=== PATIENT | female | born 1970 | race Caucasian/White ===

== ENCOUNTER → 2018-03-28 | Outpatient (CLI) | payer OTHER ==
[2018-03-28 18:14] LABS: Percent Saturation 2.3 % (15.0-50.0)
== END | disposition home or self-care (01) ==
LOC: LAB SHORT 15:25 → LAB 15:25
PROVIDERS: Internal Medicine Hematology & Oncology
DX: D50.9 Iron deficiency anemia, unspecified (principal); Z98.84 Bariatric surgery status
CPT/HCPCS: 82728; 83540; 83550

== ENCOUNTER 2018-04-24 06:59 | Day surgery (SDC) | payer OTHER ==
[~2018-04-24] VITALS: Ht 170.2 cm; Wt 125.2 kg
[~2018-04-24 06:59] MED LIST: ALBU90OI INH; CELE200 PO; Citalopram HBr40 MG PO; PANT40 PO; PRAMIPEXOLE0.125 MG PO; QVAR REDIHALE10.6 G1 INH
[2018-04-24] MEDS ORDERED: Nortriptyline H50 MG PO (08:24)
[2018-04-24] MEDS ORDERED: CLARITIN-D 121 EACH PO (08:26)
[2018-04-24] MEDS ORDERED: VITAMIN D5000 UNI1 PO (08:27)
[2018-04-25 05:57] LABS: Anion Gap 8 mmol/L (6-16); Blood Urea Nitrogen 9 mg/dL (8-24); Bun/Creatinine Ratio 17.7 (12.0-20.0); CO2, Blood 25 mmol/L (21-32); Chloride, Blood 104 mmol/L (98-108); Creatinine, Blood 0.51 mg/dL (0.40-1.00); Glomerular Filtration Rate >60 (60-); Glucose, Blood 108 mg/dL (70-99); Magnesium, Blood 1.8 mg/dL (1.6-2.4); Potassium, Blood 4.2 mmol/L (3.5-5.5); Sodium, Blood 137 mmol/L (136-145)
[2018-04-25 06:00] LABS: BASOPHILS ABSOLUTE AUTO 0.03 K/mm3 (0.00-0.23); BASOPHILS PERCENT AUTO 1 % (0-2); EOSINOPHILS ABSOLUTE AUTO 0.04 K/mm3 (0.00-0.68); EOSINOPHILS PERCENT AUTO 1 % (0-6); Hemoglobin 9.9 g/dL (11.5-16.0); IMMATURE GRAN ABSOLUTE AUTO 0.02 K/mm3 (0.00-0.10); IMMATURE GRAN PERCENT AUTO 0 % (0-1); LYMPHOCYTES ABSOLUTE AUTO 0.55 K/mm3 (0.84-5.20); LYMPHOCYTES PERCENT AUTO 10 % (21-46); MONOCYTES ABSOLUTE AUTO 0.44 K/mm3 (0.16-1.47); MONOCYTES PERCENT AUTO 8 % (4-13); NEUTROPHILS ABSOLUTE AUTO 4.48 K/mm3 (1.96-9.15); NEUTROPHILS PERCENT AUTO 81 % (41-73); Platelet Count 219 K/mm3 (150-400); White Blood Cell Count 5.56 K/mm3 (4.00-11.30)
[2018-04-25 06:02] LABS: Hematocrit 31.9 % (33.0-51.0); Mean Corpuscular HGB 23.9 pg (26.0-34.0); Mean Corpuscular Volume 77 fL (80-100); Red Blood Cell Count 4.14 M/mm3 (3.80-5.20)
[2018-04-25 06:04] LABS: Mean Platelet Volume 10.5 fL (9.1-12.4)
[2018-04-25] MEDS ORDERED: ROXICODONE5 MG PO (08:27)
[2018-04-25] MEDS ORDERED: ACET500 PO (08:29)
[2018-04-25] MEDS ORDERED: ASPI325EC PO (08:32)
== END 2018-04-25 14:24 | disposition home or self-care (01) ==
LOC: PRE IP 06:59 → SURS 06:59 → ORSCMMR 06:59 → EDSTATUS 10:30 → PRE IP 10:30 → SURS 13:25 → ORSCMMR 04-25 14:24 → SURS 04-25 14:24
PROVIDERS: Orthopaedic Surgery
PROC: 0SRC0J9 Replacement of Right Knee Joint with Synthetic Substitute, Cemented, Open Approach (ICD-10-PCS; principal; 2018-04-24 10:30)
DX: M17.11 Unilateral primary osteoarthritis, right knee (principal); I48.91 Unspecified atrial fibrillation; E66.01 Morbid (severe) obesity due to excess calories; Z68.41 Body mass index [BMI] 40.0-44.9, adult; Z79.899 Other long term (current) drug therapy
CPT/HCPCS: 36415; 73560-RT; 80048; 83735; 85025; 88300; 94640; 94760; 97110; 97116; 97162; 97530; C1713; C1776; G8978; G8979; G8980; J0171; J0690; J0735; J1885; J2250; J2795; J3010; J7120

== ENCOUNTER 2019-01-26 14:12 | Emergency (ER) | payer OTHER ==
[~2019-01-26] VITALS: Ht 172.7 cm; Wt 88.5 kg
[~2019-01-26 14:12] MED LIST changes: +ACET500 PO; +ASPI325EC PO; +Aspir 8181 MG PO; +CLARITIN-D 121 EACH PO; +Nortriptyline H50 MG PO; +ROXICODONE5 MG PO; +VITAMIN D5000 UNI1 PO
[2019-01-26 15:19] LABS: BASOPHILS ABSOLUTE AUTO 0.03 K/mm3 (0.00-0.23); BASOPHILS PERCENT AUTO 0 % (0-2); EOSINOPHILS PERCENT AUTO 1 % (0-6); Hematocrit 45.9 % (33.0-51.0); Hemoglobin 15.3 g/dL (11.5-16.0); IMMATURE GRAN ABSOLUTE AUTO 0.03 K/mm3 (0.00-0.10); IMMATURE GRAN PERCENT AUTO 0 % (0-1); LYMPHOCYTES ABSOLUTE AUTO 0.92 K/mm3 (0.84-5.20); LYMPHOCYTES PERCENT AUTO 13 % (21-46); MONOCYTES ABSOLUTE AUTO 0.46 K/mm3 (0.16-1.47); MONOCYTES PERCENT AUTO 6 % (4-13); Mean Corpuscular HGB 31.3 pg (26.0-34.0); Mean Corpuscular HGB Conc 33.3 g/dL (31.5-36.5); Mean Corpuscular Volume 94 fL (80-100); Mean Platelet Volume 10.2 fL (9.1-12.4); NEUTROPHILS ABSOLUTE AUTO 5.76 K/mm3 (1.96-9.15); NEUTROPHILS PERCENT AUTO 79 % (41-73); Platelet Count 263 K/mm3 (150-400); RDW Coefficient Variation 12.8 % (11.7-14.2); RDW Standard Deviation 43.9 fL (35.1-46.3); Red Blood Cell Count 4.89 M/mm3 (3.80-5.20)
[2019-01-26 15:45] LABS: Alanine Aminotransfer (ALT/SGP 31 U/L (12-78); Albumin, Blood 4.1 g/dL (3.4-5.0); Albumin/Globulin Ratio 1.2 (0.8-1.8); Alk Phos 68 U/L (50-136); Anion Gap 8 mmol/L (6-16); Aspartate Aminotrans (AST/SGOT 10 U/L (12-37); Bilirubin, Total 0.4 mg/dL (0.1-1.0); Blood Urea Nitrogen 10 mg/dL (8-24); Bun/Creatinine Ratio 17.5 (12.0-20.0); CO2, Blood 25 mmol/L (21-32); Calcium, Blood 8.6 mg/dL (8.5-10.1); Chloride, Blood 108 mmol/L (98-108); Creatinine, Blood 0.57 mg/dL (0.40-1.00); Globulin, Blood 3.3 g/dL (2.2-4.0); Glomerular Filtration Rate >60 (60-); Glucose, Blood 73 mg/dL (70-99); Potassium, Blood 3.3 mmol/L (3.5-5.5); Sodium, Blood 141 mmol/L (136-145); Total Protein, Blood 7.4 g/dL (6.4-8.2); Troponin I <0.015 ng/mL (0.000-0.040)
== END 2019-01-26 16:52 | disposition home or self-care (01) ==
LOC: ER 14:12
PROVIDERS: Physician Assistant
DX: R00.2 Palpitations (principal); I48.91 Unspecified atrial fibrillation; Z79.899 Other long term (current) drug therapy; Z79.82 Long term (current) use of aspirin
CPT/HCPCS: 36415; 80053; 84484; 85025; 93005; 93010; 99284-25

== ENCOUNTER → 2019-03-20 | Outpatient (CLI) | payer OTHER ==
[2019-03-22 15:06] LABS: HPV 16 Negative (Negative); HPV 18 Negative (Negative); HPV OTHER HR TYPES Negative (Negative)
== END | disposition home or self-care (01) ==
LOC: LAB SHORT 17:48 → LAB 17:48
PROVIDERS: Nurse Practitioner Women's Health
DX: Z12.4 Encounter for screening for malignant neoplasm of cervix (principal); N89.8 Other specified noninflammatory disorders of vagina
CPT/HCPCS: 87624; G0123

== ENCOUNTER 2019-04-29 15:28 | Emergency (ER) | payer OTHER ==
[~2019-04-29] VITALS: Ht 170.2 cm; Wt 136.1 kg
== END 2019-04-29 16:30 | disposition home or self-care (01) ==
LOC: ER 15:28
DX: S61.411A Laceration without foreign body of right hand, initial encounter (principal); W22.8XXA Striking against or struck by other objects, initial encounter; Z79.899 Other long term (current) drug therapy; Z79.82 Long term (current) use of aspirin; I48.91 Unspecified atrial fibrillation
CPT/HCPCS: 12001; 99283-25

== ENCOUNTER 2019-05-11 16:21 | Emergency (ER) | payer OTHER ==
[~2019-05-11] VITALS: Ht 170.2 cm; Wt 136.1 kg
== END 2019-05-11 16:46 | disposition home or self-care (01) ==
LOC: ER 16:21
DX: S61.431D Puncture wound without foreign body of right hand, subsequent encounter (principal); Z79.899 Other long term (current) drug therapy; Z79.82 Long term (current) use of aspirin; I48.91 Unspecified atrial fibrillation; K21.9 Gastro-esophageal reflux disease without esophagitis
CPT/HCPCS: 99281

== ENCOUNTER 2019-06-02 09:48 | Emergency (ER) | payer OTHER ==
[~2019-06-02] VITALS: Ht 170.2 cm; Wt 135.2 kg
[2019-06-02 10:16] LABS: BASOPHILS ABSOLUTE AUTO 0.03 K/mm3 (0.00-0.23); BASOPHILS PERCENT AUTO 0 % (0-2); EOSINOPHILS ABSOLUTE AUTO 0.04 K/mm3 (0.00-0.68); EOSINOPHILS PERCENT AUTO 1 % (0-6); Hematocrit 42.1 % (33.0-51.0); IMMATURE GRAN ABSOLUTE AUTO 0.01 K/mm3 (0.00-0.10); IMMATURE GRAN PERCENT AUTO 0 % (0-1); LYMPHOCYTES ABSOLUTE AUTO 0.83 K/mm3 (0.84-5.20); LYMPHOCYTES PERCENT AUTO 12 % (21-46); MONOCYTES ABSOLUTE AUTO 0.44 K/mm3 (0.16-1.47); MONOCYTES PERCENT AUTO 6 % (4-13); Mean Corpuscular HGB 31.4 pg (26.0-34.0); Mean Corpuscular HGB Conc 33.3 g/dL (31.5-36.5); Mean Corpuscular Volume 94 fL (80-100); Mean Platelet Volume 10.1 fL (9.1-12.4); NEUTROPHILS ABSOLUTE AUTO 5.56 K/mm3 (1.96-9.15); NEUTROPHILS PERCENT AUTO 81 % (41-73); Platelet Count 285 K/mm3 (150-400); RDW Coefficient Variation 13.1 % (11.7-14.2); RDW Standard Deviation 44.9 fL (35.1-46.3); Red Blood Cell Count 4.46 M/mm3 (3.80-5.20); White Blood Cell Count 6.91 K/mm3 (4.00-11.30)
[2019-06-02 10:36] LABS: Alanine Aminotransfer (ALT/SGP 23 U/L (12-78); Albumin, Blood 3.4 g/dL (3.4-5.0); Albumin/Globulin Ratio 1.2 (0.8-1.8); Alk Phos 55 U/L (50-136); Anion Gap 6 mmol/L (6-16); Aspartate Aminotrans (AST/SGOT 4 U/L (12-37); Bilirubin, Total 0.4 mg/dL (0.1-1.0); Blood Urea Nitrogen 7 mg/dL (8-24); CO2, Blood 26 mmol/L (21-32); Calcium, Blood 7.9 mg/dL (8.5-10.1); Chloride, Blood 111 mmol/L (98-108); Creatinine, Blood 0.58 mg/dL (0.40-1.00); Globulin, Blood 2.9 g/dL (2.2-4.0); Glomerular Filtration Rate >60 (60-); Glucose, Blood 105 mg/dL (70-99); Potassium, Blood 3.8 mmol/L (3.5-5.5); Sodium, Blood 143 mmol/L (136-145); Total Protein, Blood 6.3 g/dL (6.4-8.2); Troponin I <0.015 ng/mL (0.000-0.040)
[2019-06-02] MEDS ORDERED: Lopressor 25 mg25 MG PO (12:19)
[2019-06-06 14:50] LABS: Percent Saturation 39.9 % (15.0-50.0)
== END 2019-06-02 12:20 | disposition home or self-care (01) ==
LOC: ER 09:48
PROVIDERS: Emergency Medicine; Internal Medicine Hematology & Oncology
DX: I48.0 Paroxysmal atrial fibrillation (principal); Z98.84 Bariatric surgery status; Z79.899 Other long term (current) drug therapy
CPT/HCPCS: 36415; 71046; 80053; 82728; 83540; 83550; 84484; 85025; 92960; 93005; 93010; 96365-59; 99285-25; J2704; J7030

== ENCOUNTER 2019-08-28 15:02 | Emergency (ER) | payer OTHER ==
[~2019-08-28] VITALS: Ht 172.7 cm; Wt 136.1 kg
[~2019-08-28 15:02] MED LIST changes: +Lopressor 25 mg25 MG PO
[2019-08-28 17:10] LABS: Calcium, Ionized (POC) 1.05 mmol/L (1.10-1.46); Chloride (POC) 101 mmol/L (98-108); Glucose (ISTAT POC) 97 mg/dL (70-99); Hemoglobin (POC) 13.9 g/dL (12.0-16.0); Potassium (POC) 3.7 mmol/L (3.5-5.5); Sodium (POC) 137 mmol/L (135-148); Total CO2 (POC) 23 mmol/L (21-32)
== END 2019-08-28 18:04 | disposition home or self-care (01) ==
LOC: ER 15:02
PROVIDERS: Physician Assistant
DX: F10.129 Alcohol abuse with intoxication, unspecified (principal); D32.0 Benign neoplasm of cerebral meninges; K21.9 Gastro-esophageal reflux disease without esophagitis; I48.91 Unspecified atrial fibrillation; Z79.899 Other long term (current) drug therapy; Z79.82 Long term (current) use of aspirin
CPT/HCPCS: 70450; 80047; 85014; 93005; 93010; 99284-25

== ENCOUNTER 2019-09-28 21:42 | Emergency (ER) | payer OTHER ==
[~2019-09-28] VITALS: Ht 172.7 cm; Wt 138.0 kg
== END 2019-09-28 23:18 | disposition home or self-care (01) ==
LOC: ER 21:42
DX: J06.9 Acute upper respiratory infection, unspecified (principal); F32.9 Major depressive disorder, single episode, unspecified; K21.9 Gastro-esophageal reflux disease without esophagitis; Z79.899 Other long term (current) drug therapy; Z79.82 Long term (current) use of aspirin
CPT/HCPCS: 99283

== ENCOUNTER 2020-05-19 08:50 | Emergency (ER) | payer OTHER ==
[~2020-05-19] VITALS: Ht 170.2 cm; Wt 145.2 kg
[2020-05-19 10:16] LABS: BASOPHILS ABSOLUTE AUTO 0.02 K/mm3 (0.00-0.23); BASOPHILS PERCENT AUTO 0 % (0-2); EOSINOPHILS ABSOLUTE AUTO 0.04 K/mm3 (0.00-0.68); EOSINOPHILS PERCENT AUTO 0 % (0-6); Hematocrit 40.2 % (33.0-51.0); Hemoglobin 13.3 g/dL (11.5-16.0); IMMATURE GRAN ABSOLUTE AUTO 0.04 K/mm3 (0.00-0.10); IMMATURE GRAN PERCENT AUTO 0 % (0-1); LYMPHOCYTES ABSOLUTE AUTO 0.33 K/mm3 (0.84-5.20); LYMPHOCYTES PERCENT AUTO 3 % (21-46); MONOCYTES ABSOLUTE AUTO 0.42 K/mm3 (0.16-1.47); MONOCYTES PERCENT AUTO 4 % (4-13); Mean Corpuscular HGB 30.6 pg (26.0-34.0); Mean Corpuscular HGB Conc 33.1 g/dL (31.5-36.5); Mean Corpuscular Volume 92 fL (80-100); Mean Platelet Volume 10.2 fL (9.1-12.4); NEUTROPHILS ABSOLUTE AUTO 9.72 K/mm3 (1.96-9.15); NEUTROPHILS PERCENT AUTO 92 % (41-73); Platelet Count 237 K/mm3 (150-400); RDW Coefficient Variation 12.9 % (11.7-14.2); RDW Standard Deviation 43.6 fL (35.1-46.3); Red Blood Cell Count 4.35 M/mm3 (3.80-5.20); White Blood Cell Count 10.57 K/mm3 (4.00-11.30)
[2020-05-19 10:26] LABS: Source, Urine Clean Catch
[2020-05-19 10:37] LABS: Bilirubin, Urine Neg (Neg); Blood, Urine 3+ (Neg); Glucose Qualitative, Urine Neg (Neg); Ketones, Urine Neg (Neg); Leukocyte Esterase, Urine 2+ (Neg); Nitrite, Urine Neg (Neg); Protein, Urine 1+ (Neg); Specific Gravity, Urine 1.005 (1.003-1.022); Urobilinogen, Urine 1+ (Normal); pH, Urine 6.5 (5.0-8.0)
[2020-05-19 10:41] LABS: Alanine Aminotransfer (ALT/SGP 15 U/L (12-78); Albumin, Blood 3.8 g/dL (3.4-5.0); Albumin/Globulin Ratio 1.2 (0.8-1.8); Alk Phos 65 U/L (50-136); Anion Gap 6 mmol/L (6-16); Aspartate Aminotrans (AST/SGOT 15 U/L (12-37); Bilirubin, Total 0.8 mg/dL (0.1-1.0); Blood Urea Nitrogen 8 mg/dL (8-24); Bun/Creatinine Ratio 14.5 (12.0-20.0); CO2, Blood 29 mmol/L (21-32); Calcium, Blood 8.2 mg/dL (8.5-10.1); Chloride, Blood 103 mmol/L (98-108); Creatinine, Blood 0.55 mg/dL (0.40-1.00); Globulin, Blood 3.2 g/dL (2.2-4.0); Glomerular Filtration Rate >60 (60-); Glucose, Blood 102 mg/dL (70-99); Potassium, Blood 3.7 mmol/L (3.5-5.5); Sodium, Blood 138 mmol/L (136-145)
[2020-05-19 10:50] LABS: Appearance, Urine Clear (Clear); Bacteria Mod /hpf; Color, Urine Yellow (P-Yellow); Squamous Epithelial Cells Mod /hpf (Few)
[2020-05-19] MEDS ORDERED: CEPH500 PO (11:52)
[2020-05-19] MEDS ORDERED: Diflucan150 MG PO (11:52)
== END 2020-05-19 12:03 | disposition home or self-care (01) ==
LOC: ER 08:50
PROVIDERS: Emergency Medicine
DX: N39.0 Urinary tract infection, site not specified (principal); Z79.82 Long term (current) use of aspirin; Z79.899 Other long term (current) drug therapy; I48.91 Unspecified atrial fibrillation; F32.9 Major depressive disorder, single episode, unspecified; K21.9 Gastro-esophageal reflux disease without esophagitis
CPT/HCPCS: 36415; 80053; 81001; 81025; 85025; 87077; 87086; 87186; 93005; 93010; 99284-25; U0002

== ENCOUNTER 2020-09-15 06:31 | Emergency (ER) | payer OTHER ==
[~2020-09-15] VITALS: Ht 175.3 cm; Wt 140.6 kg
[~2020-09-15 06:31] MED LIST changes: +CEPH500 PO; +Diflucan150 MG PO
[2020-09-15] MEDS ORDERED: CARBLEV25 SL (06:41)
[2020-09-15] MEDS ORDERED: LISI20 PO (06:41)
[2020-09-15] MEDS ORDERED: OMEP20ER PO (06:42)
[2020-09-15] MEDS ORDERED: BISOPROLOL-HCT1 EACH PO (06:42)
[2020-09-15] MEDS ORDERED: IBUP400 PO (06:53)
[2020-09-15] MEDS ORDERED: Cyclobenzaprine5 MG PO (06:53)
== END 2020-09-15 07:10 | disposition home or self-care (01) ==
LOC: ER 06:31
DX: M54.41 Lumbago with sciatica, right side (principal); G89.29 Other chronic pain; I48.91 Unspecified atrial fibrillation; F32.9 Major depressive disorder, single episode, unspecified; K21.9 Gastro-esophageal reflux disease without esophagitis; Z79.82 Long term (current) use of aspirin; Z79.899 Other long term (current) drug therapy
CPT/HCPCS: 96372; 99283-25; J1885

== ENCOUNTER 2021-03-05 04:10 | Emergency (ER) | payer OTHER ==
[~2021-03-05] VITALS: Ht 172.7 cm; Wt 145.2 kg
== END 2021-03-05 07:44 | disposition home or self-care (01) ==
LOC: ER 04:10
DX: I48.91 Unspecified atrial fibrillation (principal); Z79.899 Other long term (current) drug therapy
CPT/HCPCS: 36415; 74176; 80053; 81003; 83690; 85025; 96374; 99284-25; A9270; J3010; J7030

== ENCOUNTER 2021-06-08 14:13 | Emergency (ER) | payer BC, OTHER ==
[~2021-06-08] VITALS: Ht 170.2 cm; Wt 140.6 kg
[~2021-06-08 14:13] MED LIST changes: +BISOPROLOL-HCT1 EACH PO; +CARBLEV25 SL; +Cyclobenzaprine5 MG PO; +IBUP400 PO; +LISI20 PO; +OMEP20ER PO
[2021-06-08 15:05] LABS: BASOPHILS ABSOLUTE AUTO 0.06 K/mm3 (0.00-0.23); BASOPHILS PERCENT AUTO 1 % (0-2); EOSINOPHILS ABSOLUTE AUTO 0.11 K/mm3 (0.00-0.68); EOSINOPHILS PERCENT AUTO 1 % (0-6); Hematocrit 35.3 % (33.0-51.0); Hemoglobin 11.3 g/dL (11.5-16.0); IMMATURE GRAN ABSOLUTE AUTO 0.01 K/mm3 (0.00-0.10); IMMATURE GRAN PERCENT AUTO 0 % (0-1); LYMPHOCYTES PERCENT AUTO 18 % (21-46); MONOCYTES PERCENT AUTO 9 % (4-13); Mean Corpuscular HGB 25.7 pg (26.0-34.0); Mean Corpuscular Volume 80 fL (80-100); Mean Platelet Volume 10.8 fL (9.1-12.4); NEUTROPHILS ABSOLUTE AUTO 5.48 K/mm3 (1.96-9.15); NEUTROPHILS PERCENT AUTO 71 % (41-73); Platelet Count 358 K/mm3 (150-400); RDW Coefficient Variation 14.9 % (11.7-14.2); RDW Standard Deviation 43.5 fL (35.1-46.3); Red Blood Cell Count 4.39 M/mm3 (3.80-5.20); White Blood Cell Count 7.76 K/mm3 (4.00-11.30)
[2021-06-08 15:25] LABS: Alanine Aminotransfer (ALT/SGP 19 U/L (12-78); Albumin, Blood 3.5 g/dL (3.4-5.0); Alk Phos 76 U/L (50-136); Anion Gap 6 mmol/L (6-16); Aspartate Aminotrans (AST/SGOT 17 U/L (12-37); Bilirubin, Total 0.2 mg/dL (0.1-1.0); Blood Urea Nitrogen 11 mg/dL (8-24); Bun/Creatinine Ratio 21.2 (12.0-20.0); CO2, Blood 26 mmol/L (21-32); Calcium, Blood 8.4 mg/dL (8.5-10.1); Chloride, Blood 106 mmol/L (98-108); Creatinine, Blood 0.52 mg/dL (0.40-1.00); Globulin, Blood 3.5 g/dL (2.2-4.0); Glomerular Filtration Rate >60 (60-); Glucose, Blood 85 mg/dL (70-99); Phosphorus, Blood 2.8 mg/dL (2.5-4.9); Potassium, Blood 4.2 mmol/L (3.5-5.5); Sodium, Blood 138 mmol/L (136-145)
== END 2021-06-08 20:40 | disposition home or self-care (01) ==
LOC: ER 14:13
PROVIDERS: Physician Assistant
DX: R25.2 Cramp and spasm (principal); Z79.899 Other long term (current) drug therapy
CPT/HCPCS: 36415; 80053; 83735; 83880; 84100; 85025; 93005; 93010; 93971; 99284-25

== ENCOUNTER 2021-08-24 13:10 | Emergency (ER) | payer BC, OTHER ==
[~2021-08-24] VITALS: Ht 170.2 cm; Wt 142.9 kg
[~2021-08-24 13:10] MED LIST changes: -LISI20 PO; +Prinivil10 MG PO
[2021-08-24 13:49] LABS: BASOPHILS ABSOLUTE AUTO 0.02 K/mm3 (0.00-0.23); BASOPHILS PERCENT AUTO 0 % (0-2); EOSINOPHILS ABSOLUTE AUTO 0.09 K/mm3 (0.00-0.68); EOSINOPHILS PERCENT AUTO 2 % (0-6); Hematocrit 40.3 % (33.0-51.0); Hemoglobin 13.8 g/dL (11.5-16.0); IMMATURE GRAN ABSOLUTE AUTO 0.01 K/mm3 (0.00-0.10); IMMATURE GRAN PERCENT AUTO 0 % (0-1); LYMPHOCYTES ABSOLUTE AUTO 0.76 K/mm3 (0.84-5.20); LYMPHOCYTES PERCENT AUTO 13 % (21-46); MONOCYTES ABSOLUTE AUTO 0.42 K/mm3 (0.16-1.47); MONOCYTES PERCENT AUTO 7 % (4-13); Mean Corpuscular HGB 29.6 pg (26.0-34.0); Mean Corpuscular HGB Conc 34.2 g/dL (31.5-36.5); Mean Corpuscular Volume 87 fL (80-100); NEUTROPHILS ABSOLUTE AUTO 4.65 K/mm3 (1.96-9.15); NEUTROPHILS PERCENT AUTO 78 % (41-73); Platelet Count 305 K/mm3 (150-400); RDW Coefficient Variation 18.2 % (11.7-14.2); RDW Standard Deviation 57.5 fL (35.1-46.3); Red Blood Cell Count 4.66 M/mm3 (3.80-5.20); White Blood Cell Count 5.95 K/mm3 (4.00-11.30)
[2021-08-24 14:23] LABS: Alanine Aminotransfer (ALT/SGP 23 U/L (12-78); Albumin, Blood 3.3 g/dL (3.4-5.0); Albumin/Globulin Ratio 0.8 (0.8-1.8); Alk Phos 83 U/L (50-136); Anion Gap 6 mmol/L (6-16); Aspartate Aminotrans (AST/SGOT 22 U/L (12-37); Bilirubin, Total 0.5 mg/dL (0.1-1.0); Blood Urea Nitrogen 11 mg/dL (8-24); Bun/Creatinine Ratio 19.4 (12.0-20.0); CO2, Blood 25 mmol/L (21-32); Calcium, Blood 8.8 mg/dL (8.5-10.1); Chloride, Blood 106 mmol/L (98-108); Creatinine, Blood 0.57 mg/dL (0.40-1.00); Globulin, Blood 3.9 g/dL (2.2-4.0); Glomerular Filtration Rate >60 (60-); Glucose, Blood 95 mg/dL (70-99); Potassium, Blood 3.9 mmol/L (3.5-5.5); Sodium, Blood 137 mmol/L (136-145); Total Protein, Blood 7.2 g/dL (6.4-8.2)
[2021-08-24] MEDS ORDERED: METOPROLOL TART50 M5 PO (16:12)
[2021-08-24] MEDS ORDERED: CITA20 PO (16:13)
[2021-08-24] MEDS ORDERED: FUROSEMIDE40 MG PO (16:14)
[2021-08-24 17:00] LABS: Magnesium, Blood 2.1 mg/dL (1.6-2.4); Troponin I <0.015 ng/mL (0.000-0.040)
== END 2021-08-24 17:21 | disposition home or self-care (01) ==
LOC: ER 13:10
PROVIDERS: Emergency Medicine; Physician Assistant
DX: I48.0 Paroxysmal atrial fibrillation (principal); Z79.899 Other long term (current) drug therapy
CPT/HCPCS: 36415; 80053; 83735; 84484; 85025; 93005; 93010; 93246

== ENCOUNTER 2022-03-04 06:00 | Observation (INO) | payer BC, OTHER ==
[2022-03-03 16:01] LABS: BASOPHILS ABSOLUTE AUTO 0.04 K/mm3 (0.00-0.23); BASOPHILS PERCENT AUTO 1 % (0-2); EOSINOPHILS ABSOLUTE AUTO 0.09 K/mm3 (0.00-0.68); EOSINOPHILS PERCENT AUTO 2 % (0-6); Hematocrit 39.6 % (33.0-51.0); Hemoglobin 13.1 g/dL (11.5-16.0); IMMATURE GRAN ABSOLUTE AUTO 0.01 K/mm3 (0.00-0.10); IMMATURE GRAN PERCENT AUTO 0 % (0-1); LYMPHOCYTES ABSOLUTE AUTO 1.21 K/mm3 (0.84-5.20); LYMPHOCYTES PERCENT AUTO 20 % (21-46); MONOCYTES ABSOLUTE AUTO 0.45 K/mm3 (0.16-1.47); MONOCYTES PERCENT AUTO 7 % (4-13); Mean Corpuscular HGB 30.6 pg (26.0-34.0); Mean Corpuscular HGB Conc 33.1 g/dL (31.5-36.5); Mean Corpuscular Volume 93 fL (80-100); Mean Platelet Volume 10.7 fL (9.1-12.4); NEUTROPHILS PERCENT AUTO 71 % (41-73); Platelet Count 278 K/mm3 (150-400); RDW Coefficient Variation 13.2 % (11.7-14.2); RDW Standard Deviation 44.7 fL (35.1-46.3); Red Blood Cell Count 4.28 M/mm3 (3.80-5.20)
[2022-03-03 17:26] LABS: Anion Gap 3 mmol/L (6-16); Beta HCG, Quantitative, Serum <1 mIU/mL (0-3); Blood Urea Nitrogen 11 mg/dL (8-24); Bun/Creatinine Ratio 15.9 (12.0-20.0); CO2, Blood 30 mmol/L (21-32); Calcium, Blood 8.9 mg/dL (8.5-10.1); Chloride, Blood 106 mmol/L (98-108); Creatinine, Blood 0.69 mg/dL (0.40-1.00); Glomerular Filtration Rate >60 (60-); Glucose, Blood 108 mg/dL (70-99); Sodium, Blood 139 mmol/L (136-145)
[~2022-03-04] VITALS: Ht 172.7 cm; Wt 141.2 kg
[~2022-03-04 06:00] MED LIST changes: +CITA20 PO; +FUROSEMIDE40 MG PO; +METO50 PO
[2022-03-04] MEDS ORDERED: FAMO10 PO (06:29)
--- NOTE | 2022-03-04 07:56 | NUR ---
PT RETURNS TO STEP FROM OR, AFIB c RVR NOTED IN OR, UNABLE TO PERFORM PROCEDURE. PT DENIES SOB/CP ON ARRIVAL TO STEP. PLACED ON MONITOR, AFIB C RVR NOTED IN 120'S TO 140'S. PT DRIVE SELF, UNABLE TO OBTAIN RIDE. REPORTS TYPICALLY CARDIOVERTED C FIB. MDS AT BEDSIDE DISCUSSING PLAN OF CARE C PATIENT.
--- NOTE | 2022-03-04 08:55 | NUR ---
BEDSIDE REPORT TO KATHRYN Daugherty RN IN PCU 15.
--- NOTE | 2022-03-04 09:28 | NUR ---
pt arrived to U 15. Slid from stretcher to bed, pt states slight dyspnea, although this was not observable. Denies pain/discomfort otherwise. Telemetry shows afib with RVR, rate 144. EKG and chest xray done. Cardizem IV push and gtt given after call to Ventura Duncan to inform him that pt states she has never responded favorably to cardizem. STates that it "never works for me" and that she has had 9 cardioversions in the last 2 years for her afib with RVR. STates that she takes metoprolol tartrate 75 mg BID (and took it this morning) and sometimes has to take a double dose when she feels that she is having palpitations. Blood pressure is stable at this time. Lung sounds are clear, heart sounds irregularly irregular, no murmur noted. No edema noted peripherally. She is not in distress.
[2022-03-04 09:31] LABS: BASOPHILS ABSOLUTE AUTO 0.04 K/mm3 (0.00-0.23); BASOPHILS PERCENT AUTO 1 % (0-2); EOSINOPHILS PERCENT AUTO 2 % (0-6); Hematocrit 37.6 % (33.0-51.0); Hemoglobin 12.4 g/dL (11.5-16.0); IMMATURE GRAN ABSOLUTE AUTO 0.01 K/mm3 (0.00-0.10); IMMATURE GRAN PERCENT AUTO 0 % (0-1); LYMPHOCYTES PERCENT AUTO 21 % (21-46); MONOCYTES ABSOLUTE AUTO 0.42 K/mm3 (0.16-1.47); MONOCYTES PERCENT AUTO 7 % (4-13); Mean Corpuscular HGB 30.6 pg (26.0-34.0); Mean Corpuscular Volume 93 fL (80-100); Mean Platelet Volume 10.6 fL (9.1-12.4); NEUTROPHILS PERCENT AUTO 70 % (41-73); Platelet Count 233 K/mm3 (150-400); RDW Standard Deviation 44.3 fL (35.1-46.3); Red Blood Cell Count 4.05 M/mm3 (3.80-5.20); White Blood Cell Count 6.17 K/mm3 (4.00-11.30)
[2022-03-04 09:48] LABS: Alanine Aminotransfer (ALT/SGP 84 U/L (12-78); Albumin, Blood 3.2 g/dL (3.4-5.0); Albumin/Globulin Ratio 1.1 (0.8-1.8); Alk Phos 95 U/L (50-136); Anion Gap 10 mmol/L (6-16); Aspartate Aminotrans (AST/SGOT 55 U/L (12-37); Bilirubin, Total 0.3 mg/dL (0.1-1.0); Blood Urea Nitrogen 11 mg/dL (8-24); Bun/Creatinine Ratio 17.7 (12.0-20.0); CO2, Blood 26 mmol/L (21-32); Calcium, Blood 8.2 mg/dL (8.5-10.1); Chloride, Blood 107 mmol/L (98-108); Creatinine, Blood 0.62 mg/dL (0.40-1.00); Glomerular Filtration Rate >60 (60-); Glucose, Blood 105 mg/dL (70-99); Potassium, Blood 4.1 mmol/L (3.5-5.5); Sodium, Blood 143 mmol/L (136-145); Total Protein, Blood 6.2 g/dL (6.4-8.2)
--- NOTE | 2022-03-04 10:32 | NUR ---
SCDs applied by [facility]. PT's heart rate 123-135 bpm while on cardizem gtt at 10 cc/hour.
--- NOTE | 2022-03-04 10:34 | NUR ---
Since approx 0930, pt's heart rate has been averaging 100-125, while on the cardizem gtt at 10 cc/hour. Blood pressure is stable. Pt states that she still feels like her breathing is a little strained. Spo2 96-100% while on room air at rest in bed. She also expressed some anxiety over her surgery, her living situation, and frustration at not getting the surgery done today. Emotional support and therapeutic conversation provided; pt expressed appreciation. She is now resting in bed, eyes closed, respirations are even and unlabored.
[2022-03-04 12:58] LABS: U Amphetamine Screen Not Detected; U Barbituate Screen Not Detected; U Benzodiazapine Screen Not Detected; U Buprenorphine Screen Not Detected; U Cannabinoids Screen Not Detected; U Cocaine Screen Not Detected; U Methadone Screen Not Detected; U Methamphetamine Screen Not Detected; U Opiates Screen Not Detected; U Oxycodone Screen Not Detected; U Phencyclidine Screen Not Detected; U Propoxyphene Screen Not Detected
--- NOTE | 2022-03-04 15:47 | NUR ---
CARDIZEM gtt decreased to 10cc/hour. Pt's heart rhythm atrial fibrillation, rate 97-105 at rest at this time. Pt states that her breathing has been feeling much better. She said that she felt dyspneic when she first arrived to PCU.
--- NOTE | 2022-03-04 16:06 | NUR ---
Dr Foster here to talk with the patient at this time. ATrial fibrillation noted on hospital monitor, 97-111 bpm.
--- NOTE | 2022-03-04 16:30 | NUR ---
Dr. Yen here to see the patient. Pt signed consent for cardioversion with the doctor. RT notified of plan to do cardioversion today at 1730, after 45 minutes of heparin infusion. landing scaler also notified of plan.
[2022-03-04 17:21] LABS: Anti-Xa UFH, PHA Monitoring <0.10 IU/mL; International Normalized Ratio 1.13; Prothrombin Time Results 11.8 Sec (9.7-11.5)
--- NOTE | 2022-03-04 18:09 | NUR ---
heparin gtt was started at [address] Foster. Anticipate cardioversion this evening before change of shift.
--- NOTE | 2022-03-04 19:25 | NUR ---
Pt was on heparin gtt starting from 17:15. Cardizem attempted to wean off, but pt still had heart rate increases to 120 bpm, so it was continued at 5 cc/hour. Dr. Yen arrived at 1825 for cardioversion withOUT URBANO in room PCU 15. Present were RT Modesto Mao, charge account identification clerk Tasha Santoyo, and myself RN Tatyana Morejon. Timeout performed, verified consent signed by the pt. Pt was sedated per protocol and orders from grinding machine operator. See flowsheet medication/sedation for exact times and doses. At 1849 120 J shock was delivered and pt converted to sinus bradycardia, rate 55-57 bpm. Blood pressure stable. Report was given to FABIO Nino, and pt was seen at the bedside at time of handoff. Pt is still sleepy. Wakes to gentle conversation.
--- NOTE | 2022-03-05 10:27 | NUR ---
Upon receiving a spiritual care referral, I visit pt. Pt immediately tells me about the events that led to her admission to the hospital and the plan of care going forward. She then explains abouot her medical history, her family history and some of the life events that have formed her thoughts on her spiritaul beliefs, her values and her strong work ethics. We talk about her solid support system and the things that help keep her grounded. I provide therapeutic listening and prayer. Patient responds well and shows signs of increased peace. I will continue to remain available to patient and family.
[2022-03-05] MEDS ORDERED: METO100 PO (12:11)
[2022-03-05] MEDS ORDERED: ELIQUIS5 M2 PO (12:14)
== END 2022-03-05 12:45 | disposition home or self-care (01) ==
LOC: ORSCMMR 06:00 → ORD 07:30 → PCU 08:25 → ORSCMMR 08:25 → PCU 08:49
PROVIDERS: Internal Medicine Interventional Cardiology; Nurse Practitioner Acute Care; ADMIT Obstetrics & Gynecology
DX: I48.0 Paroxysmal atrial fibrillation (principal); I10 Essential (primary) hypertension; E78.5 Hyperlipidemia, unspecified; D50.9 Iron deficiency anemia, unspecified; E66.01 Morbid (severe) obesity due to excess calories; G47.33 Obstructive sleep apnea (adult) (pediatric); F41.1 Generalized anxiety disorder; G25.81 Restless legs syndrome; D25.9 Leiomyoma of uterus, unspecified; N93.9 Abnormal uterine and vaginal bleeding, unspecified; M19.90 Unspecified osteoarthritis, unspecified site; Z98.84 Bariatric surgery status; Z96.651 Presence of right artificial knee joint
CPT/HCPCS: 36415; 71045; 80048; 80053; 83735; 83880; 84484; 84702; 85025; 85520; 85610; 86850; 86900; 86901; 93005; 93010; A9270; J0690; J1100; J1644; J1940; J2250; J2405; J2704; J3010; J7040; J7120

== ENCOUNTER 2022-07-22 00:01 | Emergency (ER) | payer OTHER ==
[~2022-07-22] VITALS: Ht 172.7 cm; Wt 99.8 kg
[~2022-07-22 00:01] MED LIST changes: +BUSP10 PO; +CELEXA40 M1 PO; +ELIQUIS5 M2 PO; +FAMO10 PO; +FURO40 PO; +IBUP600 PO; +METO100 PO; +NORT10 PO; +POTCHL20ER PO; +Sinemet 25-1001 EACH PO; +TRAM50 PO; +[UNRECOGNIZED DRUG - REMARK] PO
== END 2022-07-22 03:15 | disposition home or self-care (01) ==
LOC: ER 00:01
DX: S00.83XA Contusion of other part of head, initial encounter (principal); I48.91 Unspecified atrial fibrillation; W07.XXXA Fall from chair, initial encounter; Z79.899 Other long term (current) drug therapy
CPT/HCPCS: 99283

== ENCOUNTER 2022-09-07 14:14 | Inpatient (IN) | payer OTHER ==
[~2022-09-07] VITALS: Ht 170.2 cm; Wt 141.2 kg
[2022-09-07 15:31] LABS: BASOPHILS ABSOLUTE AUTO 0.05 K/mm3 (0.00-0.23); BASOPHILS PERCENT AUTO 1 % (0-2); EOSINOPHILS PERCENT AUTO 1 % (0-6); Hematocrit 40.2 % (33.0-51.0); Hemoglobin 13.2 g/dL (11.5-16.0); IMMATURE GRAN ABSOLUTE AUTO 0.04 K/mm3 (0.00-0.10); IMMATURE GRAN PERCENT AUTO 0 % (0-1); LYMPHOCYTES ABSOLUTE AUTO 1.01 K/mm3 (0.84-5.20); LYMPHOCYTES PERCENT AUTO 9 % (21-46); MONOCYTES ABSOLUTE AUTO 0.72 K/mm3 (0.16-1.47); MONOCYTES PERCENT AUTO 7 % (4-13); Mean Corpuscular HGB 28.2 pg (26.0-34.0); Mean Corpuscular HGB Conc 32.8 g/dL (31.5-36.5); Mean Corpuscular Volume 86 fL (80-100); NEUTROPHILS PERCENT AUTO 82 % (41-73); Platelet Count 282 K/mm3 (150-400); RDW Coefficient Variation 14.2 % (11.7-14.2); RDW Standard Deviation 44.3 fL (35.1-46.3); Red Blood Cell Count 4.68 M/mm3 (3.80-5.20); White Blood Cell Count 10.72 K/mm3 (4.00-11.30)
[2022-09-07 16:00] LABS: Albumin, Blood 3.8 g/dL (3.4-5.0); Albumin/Globulin Ratio 1.2 (0.8-1.8); Bilirubin, Total 0.5 mg/dL (0.1-1.0); Bun/Creatinine Ratio 20.6 (12.0-20.0); Calcium, Blood 8.9 mg/dL (8.5-10.1); Creatinine, Blood 0.68 mg/dL (0.40-1.00); Globulin, Blood 3.2 g/dL (2.2-4.0); Potassium, Blood 3.8 mmol/L (3.5-5.5)
[2022-09-07] MEDS ORDERED: OMEP20ER PO (16:10)
[2022-09-07] MEDS ORDERED: NORTRIPTYLINE H50 M1 PO (16:10)
[2022-09-07] MEDS ORDERED: FAMO20 PO (16:11)
[2022-09-07] MEDS ORDERED: METO100 PO (16:12)
[2022-09-07 16:38] LABS: Thyroid Stimulating Hormone 2.68 uIU/mL (0.360-4.800)
[2022-09-07] MEDS ORDERED: Celexa20 MG PO (20:54)
[2022-09-07 23:45] LABS: Anti-Xa UFH, PHA Monitoring <0.10 IU/mL; International Normalized Ratio 1.11; Prothrombin Time Results 11.6 Sec (9.7-11.5)
--- NOTE | 2022-09-08 06:14 | NUR ---
SHIFT SUMMARY ER ADMIT. ARRIVAL TO PCU AT 2004. AFEBRILE. BP STABLE. ON RA SATS OVER 95%. HR AFIB 130-170'S ON ARRIVAL WITH CARDIZEM GTT RUNNING AT 20ML/HR. MINIMAL INITIAL IMPROVEMENT WITH HR. AFTER TAKING PO LOPRESSOR HR IMPROVED TO 90-110'S. CARDIZEM TITRATED DOWN TO 10ML/HR FOR REST OF NIGHT. ABLE TO AMBULATE WITH STAND BY ASSIST. PT REPORTED NOT EATING MUCH FOR DAYS, BIG APPETITE THIS EVENING. HEADACHE W/ RELIEF FROM TYLENOL. ALERT AND ORIENTED X4. HEP GTT RUNNING. IN BED RESTING WITH CALL ALARM AT SIDE, WILL CONTINUE TO MONITOR UNTIL REPORT GIVEN TO ONCOMING RN
[2022-09-08 06:17] LABS: BASOPHILS ABSOLUTE AUTO 0.02 K/mm3 (0.00-0.23); BASOPHILS PERCENT AUTO 0 % (0-2); EOSINOPHILS ABSOLUTE AUTO 0.14 K/mm3 (0.00-0.68); EOSINOPHILS PERCENT AUTO 3 % (0-6); Hematocrit 34.6 % (33.0-51.0); Hemoglobin 11.1 g/dL (11.5-16.0); IMMATURE GRAN ABSOLUTE AUTO 0.01 K/mm3 (0.00-0.10); IMMATURE GRAN PERCENT AUTO 0 % (0-1); LYMPHOCYTES ABSOLUTE AUTO 1.47 K/mm3 (0.84-5.20); LYMPHOCYTES PERCENT AUTO 30 % (21-46); MONOCYTES ABSOLUTE AUTO 0.48 K/mm3 (0.16-1.47); MONOCYTES PERCENT AUTO 10 % (4-13); Mean Corpuscular HGB 27.5 pg (26.0-34.0); Mean Corpuscular HGB Conc 32.1 g/dL (31.5-36.5); Mean Corpuscular Volume 86 fL (80-100); Mean Platelet Volume 10.9 fL (9.1-12.4); NEUTROPHILS ABSOLUTE AUTO 2.78 K/mm3 (1.96-9.15); NEUTROPHILS PERCENT AUTO 57 % (41-73); Platelet Count 239 K/mm3 (150-400); RDW Coefficient Variation 14.1 % (11.7-14.2); RDW Standard Deviation 43.6 fL (35.1-46.3); Red Blood Cell Count 4.03 M/mm3 (3.80-5.20)
[2022-09-08 06:37] LABS: Bilirubin, Total 0.7 mg/dL (0.1-1.0); Bun/Creatinine Ratio 20.1 (12.0-20.0); Calcium, Blood 8.7 mg/dL (8.5-10.1); Creatinine, Blood 0.6 mg/dL (0.40-1.00); Globulin, Blood 2.9 g/dL (2.2-4.0); Potassium, Blood 3.7 mmol/L (3.5-5.5); Total Protein, Blood 5.9 g/dL (6.4-8.2)
--- NOTE | 2022-09-08 17:43 | NUR ---
SHIFT SUMMARY PT IS ALERT AND ORIENTED X 4, SHE USES CALL LIGHT APPROPRIATELY AND IS PLEASANT AND COOPERATIVE WITH CARE. BP STABLE, SP02 94-100% VIA ROOM AIR. HR HAS RANGED AFIB 90-130'S. SEE EMAR FOR RATE CONTROL. DILTIAZEM DRIP WAS STOPPED THIS AFTERNOON PER ORDERS FROM DR. RAMIREZ DUE TO HR RANGING 90-110'S. SHE DENIED FEELINGS OF CHEST PAIN/PRESSURE. THIS AM SHE REPORTED FEELING DIZZY/LIGHTHEADED WELL SOB UPON AMBULATION. SHE HAS SINCE REPORTED A DECREASE IN SYMPTOMS DUE TO A MORE CONTROLLED RATE. SHE IS A SBA TO BATHROOM TO MANAGE LINES/CORDS BUT IS OTHERWISE INDEPENDENT. PT ALSO REPORTED JOINT/NERVE PAIN IN BILATERAL KNEES AND ANKLES WELL DOWN HER LEGS, PLEASE SEE EMAR FOR PAIN MANAGEMENT. NO OTHER ACUTE CHANGES NOTED. BILATERAL AC IV'S ARE SALINE LOCKED. CALL LIGHT IS WITHIN REACH. PT IS NOW TALKING ON THE PHONE.
--- NOTE | 2022-09-08 21:38 | NUR ---
ASSUMPTION OF CARE THIS RN ASSUMED CARE OF PATIENT AT 1900. REPORT TAKEN FROM RICKY MCCARTHY. PATIENT CONTINUES TO BE IN AFIB WITH HR RANGING FROM 100-130S. CARDIZEM GTT WAS PUT ON STANDBY BY PREVIOUS RN, STILL AT BEDSIDE. PATIENT WITH INCREASED LOPRESSOR DOSE OF 150 AROUND 1730 THIS EVENING PRIOR TO THIS RN COMING ONTO SHIFT. IF PATIENT'S HR CONTINUES TO MAINTAIN HIGHER THAN 110'S THIS RN WILL CONSIDER PLACING BACK ON CARDIZEM GTT. PATIENT MEDICATED FOR PAIN. ALERT AND ORIENTED FULLY. NO EDEMA NOTED. ON RA WITH O2 SATS >94%. CALLS APPROPRIATELY FOR STAFF ASSISTANCE. BED IN LOWEST POSITION AND CALL LIGHT WITHIN REACH.
--- NOTE | 2022-09-09 04:33 | NUR ---
SHIFT SUMMARY PATIENT ALERT AND ORIENTED FULLY DURING SHIFT. PATIENT INDEPENDENT WITH MOVEMENTS IN BED. VINCENT ON STANDBY AT BEDSIDE. BREANNE WITH VERBAL ORDERS FOR OT DOSE OF 25MG LOPRESSOR LAST NIGHT DUE TO HR MAINTAINING IN THE 120S. PT ABLE TO MAINTAIN HR IN THE 110'S WITH HR OCCASIONALLY COMING DOWN TO 90'S AT TIMES. PATIENT DENIES CHEST PAIN/PRESSURE AND SOB. BP STABLE. MEDICATING PER EMAR. PATIENT ABLE TO MAKE NEEDS KNOWN. CALLING APPROPRIATELY AND CALM AND COOPERATIVE WITH CARE. CALL LIGHT WITHIN REACH AND BED IN LOWEST POSITION. THIS RN WILL CONTINUE TO MONITOR UNTIL SHIFT CHANGE AT 0700.
[2022-09-09 08:16] LABS: Bun/Creatinine Ratio 23.5 (12.0-20.0); Creatinine, Blood 0.55 mg/dL (0.40-1.00); Potassium, Blood 4.2 mmol/L (3.5-5.5)
--- NOTE | 2022-09-09 17:58 | NUR ---
SHIFT SUMMARY PT IS ALERT AND ORIENTED X 4, SHE IS PLEASANT AND COOPERATIVE W/ CARE. BP STABLE, HR HAS RANGED FROM 110-150 PER TELE MONITORING. SEE EMAR FOR HR MANAGEMENT. SHE DENIED CHEST PAIN/PRESSURE BUT REPORTED OCCASIONAL LIGHTHEADEDNESS AND FEELINGS OF SOB WHEN HR IS ELEVATED. SHE STATED "I KNOW WHEN MY HR IS REALLY HIGH." SPO2 >95% VIA ROOM AIR. SHE IS SBA TO BATHROOM. IV IN R AC IS SALINE LOCKED. BARRIER CREAM APPLIED TO REDDENED AREA LOCATED IN LEFT PANNUS. PLAN TO START ON NEW DOSE OF TOPROL XL FOR HR MANAGEMENT, SEE EMAR. NO OTHER ACUTE CHANGES NOTED. PT NOW TALKING ON CELL PHONE. CALL LIGHT IS IN REACH, BED IN LOW.
--- NOTE | 2022-09-09 21:45 | NUR ---
ASSUMPTION OF CARE THIS RN ASSUMED CARE OF PATIENT AT 1900. REPORT TAKEN FROM RICKY MCCARTHY. PATIENT A&O X4. CALM AND COOPERATIVE WITH CARE, ABLE TO MAKE NEEDS KNOWN. PATIENT INDEPENDENT TO THE BATHROOM AND WITH REPOSITIONING IN BED. CALLING STAFF APPROPRIATELY. PATIENT CONTINUES TO BE IN AFIB WITH HR 130-140S WITH ACTIVITY. PATIENT HAS BEEN ACTIVE SINCE PO METOPROLOL GIVEN, SEE EMAR, HR CONTINUES TO BE 130-140S. BP CYCLING EVERY HOUR DUE TO INCREASED DOSE OF METOPROLOL. CONTINUOUS CARDIAC MONITORING IN PLACE. BED IN LOWEST POSITION AND CALL LIGHT WITHIN PLACE.
--- NOTE | 2022-09-10 04:50 | NUR ---
SHIFT SUMMARY PATIENT A&O X4. CALM AND COOPERATIVE WITH CARE. PATIENT ABLE TO MAKE NEEDS KNOWN AND IS INDEPENDENT WITH REPOSITIONING AND TO THE BATHROOM. PATIENT GIVEN 200MG TOPROL XL AT BEGINNING OF SHIFT; SEE EMAR. PATIENT CONTINUES TO BE IN AFIB WITH HR SLOWLY DECREASING THROUGHOUT THE NIGHT. PATIENT STILL MAINTAINING 130-140S WITH ACTIVITY. WHILE SLEEPING THIS SHIFT THE PATIENT MAINTAINED HR IN THE 110S. PATIENT DENIES CHEST PAIN/PRESSURE. REPORTS OCCASIONAL SOB WITH ACTIVITY/WALKING. PATIENT EXHIBITS KNOWLEDGE OF ILLNESS AND NEEDED INTERVENTIONS. BP STABLE. AFEBRILE. PATIENT CONTINENT OF B/B. CALLING STAFF APPRORIATELY. PATIENT APPEARS TO BE RESTING WITH EQUAL CHEST RISE/FALL NOTED. BED IN LOWEST POSITION AND CALL LIGHT WITHIN REACH. THIS RN WILL CONTINUE TO MONITOR AND PROVIDE INTERVENTIONS APPROPRIATE UNTIL SHIFT CHANGE AT 0700.
[2022-09-10 05:53] LABS: Hematocrit 36.3 % (33.0-51.0); Hemoglobin 11.9 g/dL (11.5-16.0)
[2022-09-10 06:21] LABS: Calcium, Blood 8.4 mg/dL (8.5-10.1); Creatinine, Blood 0.6 mg/dL (0.40-1.00); Potassium, Blood 4.1 mmol/L (3.5-5.5)
--- NOTE | 2022-09-10 09:38 | NUR ---
AM NOTE: PATIENT ALERT AND ORIENTED X4. NEURO WNL AND PATIENT STATES AT HER BASELINE. OCCASIONAL NEUROPATHY TO RIGHT SIDE. PERRLA. UP TO BATHROOM IND. DENIES SOB. LUNGS SOUNDING CLEAR. ON ROOM AIR. TELE SHOWING AFIB WITH HR 100-130'S THIS AM AT REST. 1ST DOSE OF PO CARDIZEM THIS AM. BP STABLE. DENIES CHEST PAIN/PRESSURE. STATES SHE CAN FEEL HEART RACING WHEN UP WALKING AROUND. DENIES FEELING LIGHT HEADED. DENIES ABDOMINAL PAIN/NAUSEA. BOWEL TONES PRESENT. TOLERATING PO DIET. UP IND TO BATHROOM. STRONG PERIPHERAL PULSES. CALL LIGHT IN REACH. WILL CONTINUE TO MONITOR.
--- NOTE | 2022-09-10 11:28 | NUR ---
HR AVERAGING 120'S WHEN ASLEEP AFTER BREAKFAST AND PO CARDIZEM. UP TO 140'S WHEN MOVING AROUND AND OUT OF BED. PATIENT STATES SHE FELT THE PO CARDIZEM MADE HER DROWSY. SEE CHARTED HR VITAL SIGNS THROUGHOUT AM.
--- NOTE | 2022-09-10 14:35 | NUR ---
DR. Claros IN TO SEE PATIENT. PLANS TO RESTART CARDIZEM DRIP, START PO DIG, CONTINUE ALL OTHER PO MEDS AT THIS TIME SCHEDULED, AND POSSIBLE URBANO/CARDIOVERSION 09/11 DEPENDING ON HR RATE CONTROL. PATIENT ABLE TO DISCUSS PLANS WITH DR. Claros AND HAVE ALL QUESTIONS ANSWERED. WILL CONTINUE TO MONITOR.
--- NOTE | 2022-09-10 17:46 | NUR ---
SHIFT SUMMARY: SEE SHAUN NOTES FOR UPDATES. NO CHANGES TO NEURO. REMAINS ON ROOM AIR. TELE CONTINUES TO SHOW AFIB WITH HR 110-130'S. BP STABLE. CARDIZEM GTT INFUSING AT 10 MG/HR. PO MEDS GIVEN PER EMAR. NPO AT MIDNIGHT FOR POSSIBLE CARDIOVERSION/URBANO IN AM. DENIES CHEST PAIN/PRESSURE. DENIES ABDOMINAL PAIN/NAUSEA. TOLERATING PO DIET. CALL LIGHT IN REACH. DENIES NEEDS. WILL CONTINUE TO MONITOR AND REPORT OFF TO ONCOMING RN.
--- NOTE | 2022-09-10 19:22 | NUR ---
ASSUMED CARE. AOX3, INDEPENDENT. CURRENTLY SITTING UP IN BED WATCHING TV FINISHING DINNER. HR IS 110'S AFIB, NO CHEST PAIN AT THIS TIME. BP 140'S AND STABLE. CARDIZEM GTT AT 10MCQ. DISCUSSED NPO STATUS FOR CARDIOVERSION AND POSSIBLE URBANO TOMORROW. DENIES ANY NEEDS AT THIS TIME. CALL LIGHT IN REACH.
--- NOTE | 2022-09-11 00:52 | NUR ---
PT WAS UP WALKING IN THE [place]. HR DURING ACTIVITY WAS 110'S AT MOST. WHILE RESTING SHE WAS IN THE 80-90'S AFIB. STILL NO CARDIAC SYMPTOMS REPORTED. VINCENT GTT PLACED ON STANDBY AT 0000. RATE CURRENTLY 80-90'S STILL SHE IS RESTING IN BED. WILL CONTINUE TO MONITOR.
[2022-09-11 04:16] LABS: BASOPHILS ABSOLUTE AUTO 0.02 K/mm3 (0.00-0.23); BASOPHILS PERCENT AUTO 0 % (0-2); EOSINOPHILS ABSOLUTE AUTO 0.12 K/mm3 (0.00-0.68); EOSINOPHILS PERCENT AUTO 3 % (0-6); Hematocrit 36.7 % (33.0-51.0); Hemoglobin 12.4 g/dL (11.5-16.0); IMMATURE GRAN ABSOLUTE AUTO 0.01 K/mm3 (0.00-0.10); IMMATURE GRAN PERCENT AUTO 0 % (0-1); LYMPHOCYTES ABSOLUTE AUTO 1.18 K/mm3 (0.84-5.20); LYMPHOCYTES PERCENT AUTO 26 % (21-46); MONOCYTES ABSOLUTE AUTO 0.44 K/mm3 (0.16-1.47); MONOCYTES PERCENT AUTO 10 % (4-13); Mean Corpuscular HGB 28.4 pg (26.0-34.0); Mean Corpuscular HGB Conc 33.8 g/dL (31.5-36.5); Mean Corpuscular Volume 84 fL (80-100); Mean Platelet Volume 10.6 fL (9.1-12.4); NEUTROPHILS ABSOLUTE AUTO 2.84 K/mm3 (1.96-9.15); NEUTROPHILS PERCENT AUTO 62 % (41-73); Platelet Count 248 K/mm3 (150-400); RDW Coefficient Variation 14.3 % (11.7-14.2); RDW Standard Deviation 44.1 fL (35.1-46.3); Red Blood Cell Count 4.36 M/mm3 (3.80-5.20); White Blood Cell Count 4.61 K/mm3 (4.00-11.30)
[2022-09-11 04:48] LABS: Anion Gap 7 mmol/L (6-16); Blood Urea Nitrogen 15 mg/dL (8-24); Bun/Creatinine Ratio 25.3 (12.0-20.0); CO2, Blood 27 mmol/L (21-32); Calcium, Blood 8.8 mg/dL (8.5-10.1); Chloride, Blood 107 mmol/L (98-108); Creatinine, Blood 0.59 mg/dL (0.40-1.00); Digoxin (Lanoxin) 0.58 ug/mL (0.80-2.00); Glomerular Filtration Rate 109 (60-); Glucose, Blood 101 mg/dL (70-99); Potassium, Blood 3.9 mmol/L (3.5-5.5); Sodium, Blood 141 mmol/L (136-145)
--- NOTE | 2022-09-11 05:54 | NUR ---
SHIFT SUMMARY: INDEPENDENT IN THE ROOM. VINCENT GTT WAS DROPPED DOWN TO 5MCQ AFTER DIGOXIN WAS GIVEN DUE TO HR IN THE 110-115, BLOOD PRESSURE MAINTAINED WNL. HR THEN DROPPED TO 80-90'S AND WAS SUSTAINING, BP STILL HOLDING. SHE WAS ABLE TO GET UP AND AMBULATE IN [place] WITH ONLY MILD INCREASE IN HR TO 110'S. VINCENT GTT PLACED ON SB AROUND MIDNIGHT AND HAS BEEN OFF REST OF NIGHT. SHE WILL OCCATIONALLY JUMP TO 120-123 BUT FOR A SECOND BUT HAS MAINTAINED HR 90-110'S AFIB. NO CHEST PAIN, RACING OR PALPITATIONS HAVE BEEN NOTED. NPO SINCE MIDNIGHT FOR URBANO AND MAYBE CARDIOVERSION. WILL REPORT TO DAYSHIFT.
--- NOTE | 2022-09-11 09:19 | NUR ---
AM NOTE: PATIENT ALERT AND ORIENTED X4. DR. BENEDICT IN TO SEE PATIENT THIS AM. PLAN FOR URBANO/CARDIOVERSION AT 11 AM. HOLDING AM PO METOPROLOL AND CARDIZEM. WILL PLAN TO USE CARDIZEM DRIP IF NEEDED TO KEEP HR LESS THAN 110 PRIOR TO URBANO/CARDIOVERSION. THIS RN COMMUNICATED WITH NURSING SUP AND ANESTHESIOLOGY FOR CARDIOVERSION. PATIENT UPDATED AND EDUCATED ON PROCEDURE. VITAL SIGNS STABLE. DENIES CHEST PAIN/PRESSURE. REMAINS NPO. CALL LIGHT IN REACH. WILL CONTINUE TO MONITOR.
--- NOTE | 2022-09-11 13:20 | NUR ---
URBANO/CARDIOVERSION COMPLETE. PATIENT IN SINUS RHYTHM WITH HR 50-60'S. POST VITALS IN PROGRESS AND ALL STABLE. PATIENT ALERT AND ORIENTED X4. SITTING UPRIGHT AT THIS TIME AND DRINKING WATER. UP TO BATHROOM WITH SBA. POST URBANO/CARDIOVERSION EKG COMPLETED AND IN CHART.
--- NOTE | 2022-09-11 17:34 | NUR ---
SHIFT SUMMARY: PATIENT REMAINS STABLE POST URBANO/CARDIOVERSION. SOTALOL DOSES STARTED AT 1500 FOLLOWED BY EKG. SEE EKG'S IN CHART. REMAINS ON ROOM AIR. TELE SHOWING SINUS RHYTHM WITH HR 60-70'S. BP STABLE. DENIES CHEST PAIN/PRESSURE. DENIES ANY SOB. FAMILY AT BEDSIDE. EATING DINNER. DENIES NEEDS. CALL LIGHT IN REACH. WILL CONTINUE TO MONITOR.
--- NOTE | 2022-09-11 21:23 | NUR ---
ASSUMED CARE. AOX3, TIRED AND SLEEPING ALOT. STATES SHE IS JUST FATIQUED BUT FEELS BETTER THAN YESTERDAY. DENIES ANY CARDIAC SYMPTOMS. SINUS ON MONITOR. RATE RUNNING IN 60-70'S. NO CHANGES WITH MOVEMENT OR ACTIVITY. VS WNL. ADMINISTERED PO MEDS. WILL CONTINUE TO MONITOR.
[2022-09-12 04:18] LABS: BASOPHILS ABSOLUTE AUTO 0.04 K/mm3 (0.00-0.23); BASOPHILS PERCENT AUTO 1 % (0-2); EOSINOPHILS ABSOLUTE AUTO 0.16 K/mm3 (0.00-0.68); EOSINOPHILS PERCENT AUTO 3 % (0-6); Hematocrit 37.6 % (33.0-51.0); Hemoglobin 12.1 g/dL (11.5-16.0); IMMATURE GRAN ABSOLUTE AUTO 0.01 K/mm3 (0.00-0.10); IMMATURE GRAN PERCENT AUTO 0 % (0-1); LYMPHOCYTES ABSOLUTE AUTO 1.03 K/mm3 (0.84-5.20); LYMPHOCYTES PERCENT AUTO 21 % (21-46); MONOCYTES ABSOLUTE AUTO 0.51 K/mm3 (0.16-1.47); MONOCYTES PERCENT AUTO 10 % (4-13); Mean Corpuscular HGB 27.7 pg (26.0-34.0); Mean Corpuscular HGB Conc 32.2 g/dL (31.5-36.5); Mean Corpuscular Volume 86 fL (80-100); Mean Platelet Volume 11.5 fL (9.1-12.4); NEUTROPHILS ABSOLUTE AUTO 3.21 K/mm3 (1.96-9.15); NEUTROPHILS PERCENT AUTO 65 % (41-73); Platelet Count 239 K/mm3 (150-400); RDW Coefficient Variation 14.2 % (11.7-14.2); Red Blood Cell Count 4.37 M/mm3 (3.80-5.20); White Blood Cell Count 4.96 K/mm3 (4.00-11.30)
[2022-09-12 04:34] LABS: Bun/Creatinine Ratio 27.3 (12.0-20.0); Creatinine, Blood 0.73 mg/dL (0.40-1.00); Magnesium, Blood 2.2 mg/dL (1.6-2.4)
--- NOTE | 2022-09-12 05:01 | NUR ---
2ND EKG RESULTS CALLED INTO DR. FONG. STATES SHE WILL MAKE CHANGES TO NEXT DOSE.
--- NOTE | 2022-09-12 06:28 | NUR ---
SHIFT SUMMARY: INDEPENDENT IN ROOM, TIRED AT START OF SHIFT DID WAKE UP AND SNACKED LATER IN THE EVENING. HR HAS REMAINED IN THE 60-70'S. ENTIRE SHIFT. VS WNL. PATIENT DENIED ANY SX OR COMPLAINTS. SECOND DOSE OF SOTALOL WAS GIVEN, AND EKG COMPLETED AFTERWARS SHOWED QTC.480. DR. DUBON CALLED, PLAN IS TO CHANGE DOSAGE ON SOTALOL. NO OTHER CHANGES TO NOTE.
--- NOTE | 2022-09-12 10:02 | NUR ---
AM NOTE: PATIENT ALERT AND ORIENTED X4. NEURO WNL. ON ROOM AIR SATING ABOVE 95%. TELE SHOWING SINUS RHYTHM WITH HR 60-70'S. DENIES CHEST PAIN/PRESSURE. BP STABLE. SPOKE WITH DR. FONG THIS AM, CHANGES TO MEDS. WILL PLAN FOR SOTALOL AT 1500 FOLLOWED BY EKG TO MONITOR QTC. PATIENT EDUCATED AND UPDATED ON PLAN OF CARE. DENIES ABDOMINAL PAIN/NAUSEA. TOLERATING PO DIET. UP IND TO BATHROOM. CALL LIGHT IN REACH. DENIES NEEDS. WILL CONTINUE TO MONITOR.
--- NOTE | 2022-09-12 16:05 | NUR ---
3RD SOTALOL DOSE GIVEN AND POST EKG COMPLETED AND IN CHART. QTC MEASURING 454.
--- NOTE | 2022-09-12 17:55 | NUR ---
SHIFT SUMMARY: NO ACUTE CHANGES SEE PREVIOUS NOTES. REMAINS SINUS RHYTHM ON TELE WITH HR 80'S. 3RD SOTALOL DOSE GIVEN WITH FOLLOW UP EKG. DR. FONG IN TO ASSESS EKG THIS EVENING. NO NEW ORDERS FOR THIS RN. REMAINS ON ROOM AIR. VITAL SIGNS STABLE THROUGHOUT SHIFT. MEDICATED ONCE FOR HEADACHE. EATING DINNER AT THIS TIME. SHOWER TODAY. DENIES NEEDS. WILL CONTINUE TO MONITOR.
[2022-09-13 04:50] LABS: Bun/Creatinine Ratio 27.7 (12.0-20.0); Calcium, Blood 8.6 mg/dL (8.5-10.1); Creatinine, Blood 0.58 mg/dL (0.40-1.00); Magnesium, Blood 1.9 mg/dL (1.6-2.4)
--- NOTE | 2022-09-13 06:34 | NUR ---
SHIFT SUMMARY: PT A/O X 4, IND IN ROOM. PT DID NOT HAVE ANY COMPLAINTS OF CP OR SOB THROUGHOUT SHIFT. SHE DID COMPLAIN OF SYMPTOMS OF RESTLESS LEG SYNDROME THIS AM. SOTOLOL GIVEN AT 3 AM PER ORDER AND FOLLOW-UP EKG COMPLETED ONE HOUR LATER. DR. BENEDICT WAS LEFT A MESSAGE REGARDING QTC RESULTS. NO RETURN CALL AT THIS TIME. MAGNESIUM LEVEL 1.9 AND MAGNESIUM 2 GRAMS VIA IV STARTED THIS AM PER ORDER.
--- NOTE | 2022-09-13 16:37 | NUR ---
Shift Summary Pt alert, oriented x4, calm and cooperative with care. Pt denies pain, chest pain/pressure, sob, nausea, dizziness and numb/tingling. Tele sinus, bp stable. Spo2 >90% on ra, breathing even and unlabored. Pt ind in room. Ekg this am, notified MD, awaiting evening ekg. Other vss. No other acute changes noted. Will continue to monitor unitl report given to oncoming rn.
[2022-09-13] MEDS ORDERED: METO25ER PO (17:54)
[2022-09-13] MEDS ORDERED: ELIQUIS5 M2 PO (17:55)
[2022-09-13] MEDS ORDERED: SOTO80 PO (17:56)
--- NOTE | 2022-09-13 18:54 | NUR ---
Evening ekg completed, notified lester Duke for discharge with medciation per emar. Notified Dr Francisco and discussed elevated bp, new orders for discharge. Educated pt on discharge instructions, follow up appointment and new prescirptions. Prescriptions called/faxed to [facility] pharmacy, per pt request. Educated pt on medications and the need to keep blood pressure log, and follow up with pcp on bp. Pt left via wheelchair at 1837.
== END 2022-09-13 18:37 | disposition home or self-care (01) | DRG 308 ==
LOC: ER 14:14 → PCU 14:15
PROVIDERS: Family Medicine; Family Medicine Adult Medicine; Internal Medicine Cardiovascular Disease; Student in an Organized Health Care Education/Training Program; ADMIT Student in an Organized Health Care Education/Training Program
PROC: 5A2204Z Restoration of Cardiac Rhythm, Single (ICD-10-PCS; principal; 2022-09-11)
PROC: B24BZZ4 Ultrasonography of Heart with Aorta, Transesophageal (ICD-10-PCS; 2022-09-11)
DX: I48.0 Paroxysmal atrial fibrillation (principal); I50.31 Acute diastolic (congestive) heart failure; Z68.42 Body mass index [BMI] 45.0-49.9, adult; F32.A Depression, unspecified; Z96.651 Presence of right artificial knee joint; E78.00 Pure hypercholesterolemia, unspecified; D50.9 Iron deficiency anemia, unspecified; G47.33 Obstructive sleep apnea (adult) (pediatric); E66.01 Morbid (severe) obesity due to excess calories; F10.20 Alcohol dependence, uncomplicated; G62.9 Polyneuropathy, unspecified; I11.0 Hypertensive heart disease with heart failure; E87.6 Hypokalemia; E83.42 Hypomagnesemia; I47.1 Supraventricular tachycardia; R94.31 Abnormal electrocardiogram [ECG] [EKG]; Z98.84 Bariatric surgery status; Z79.899 Other long term (current) drug therapy; Z87.42 Personal history of other diseases of the female genital tract; Z98.890 Other specified postprocedural states; Z98.51 Tubal ligation status; Z79.891 Long term (current) use of opiate analgesic; Z86.16 Personal history of COVID-19; Z79.01 Long term (current) use of anticoagulants; Z87.891 Personal history of nicotine dependence
CPT/HCPCS: 36415; 71046; 80048; 80053; 80162; 83690; 83735; 83880; 84439; 84443; 84484; 85014; 85018; 85025; 85520; 85610; 85730; 93005; 93010; 93306; 93312; 93325; 94762; 96365; 96372; 96376; 99285-25; A9270; G0378; J1644; J1650; J2704; J3475; J7030

== ENCOUNTER 2023-06-02 16:13 | Emergency (ER) | payer OTHER ==
[~2023-06-02] VITALS: Ht 172.7 cm; Wt 133.4 kg
[~2023-06-02 16:13] MED LIST changes: +Celexa20 MG PO; +FAMO20 PO; +METO25ER PO; +NORTRIPTYLINE H50 M1 PO; +SOTO80 PO
[2023-06-02 16:48] LABS: BASOPHILS ABSOLUTE AUTO 0.03 K/mm3 (0.00-0.23); BASOPHILS PERCENT AUTO 1 % (0-2); EOSINOPHILS ABSOLUTE AUTO 0.09 K/mm3 (0.00-0.68); EOSINOPHILS PERCENT AUTO 2 % (0-6); Hematocrit 31.5 % (33.0-51.0); Hemoglobin 9.8 g/dL (11.5-16.0); IMMATURE GRAN ABSOLUTE AUTO 0.01 K/mm3 (0.00-0.10); IMMATURE GRAN PERCENT AUTO 0 % (0-1); LYMPHOCYTES ABSOLUTE AUTO 0.85 K/mm3 (0.84-5.20); LYMPHOCYTES PERCENT AUTO 14 % (21-46); MONOCYTES ABSOLUTE AUTO 0.49 K/mm3 (0.16-1.47); MONOCYTES PERCENT AUTO 8 % (4-13); Mean Corpuscular HGB 21.7 pg (26.0-34.0); Mean Corpuscular HGB Conc 31.1 g/dL (31.5-36.5); Mean Corpuscular Volume 70 fL (80-100); Mean Platelet Volume 10.2 fL (9.1-12.4); NEUTROPHILS ABSOLUTE AUTO 4.68 K/mm3 (1.96-9.15); NEUTROPHILS PERCENT AUTO 76 % (41-73); Platelet Count 304 K/mm3 (150-400); RDW Coefficient Variation 18.4 % (11.7-14.2); RDW Standard Deviation 45.6 fL (35.1-46.3); Red Blood Cell Count 4.52 M/mm3 (3.80-5.20); White Blood Cell Count 6.15 K/mm3 (4.00-11.30)
[2023-06-02 17:05] LABS: Albumin, Blood 3.9 g/dL (3.4-5.0); Albumin/Globulin Ratio 1.1 (0.8-1.8); Bilirubin, Total 0.3 mg/dL (0.1-1.0); Bun/Creatinine Ratio 12.8 (12.0-20.0); Calcium, Blood 8.4 mg/dL (8.5-10.1); Creatinine, Blood 0.55 mg/dL (0.40-1.00); Globulin, Blood 3.5 g/dL (2.2-4.0); Magnesium, Blood 1.8 mg/dL (1.6-2.4); Potassium, Blood 3.8 mmol/L (3.5-5.5); Total Protein, Blood 7.4 g/dL (6.4-8.2)
[2023-06-02 20:00] VITALS: BP 160/85
== END 2023-06-02 20:25 | disposition home or self-care (01) ==
LOC: ER 16:13
PROVIDERS: Physician Assistant
DX: R00.2 Palpitations (principal); I48.91 Unspecified atrial fibrillation; Z79.01 Long term (current) use of anticoagulants
CPT/HCPCS: 71045; 80053; 83735; 84484; 85025; 93005; 93010; 99285-25

== ENCOUNTER 2024-05-06 02:35 | Inpatient (IN) | payer OTHER ==
[~2024-05-06] VITALS: Ht 172.7 cm; Wt 136.1 kg
[2024-05-06 02:50] LABS: BASOPHILS ABSOLUTE AUTO 0.02 K/mm3 (0.00-0.23); BASOPHILS PERCENT AUTO 0 % (0-2); EOSINOPHILS ABSOLUTE AUTO 0.05 K/mm3 (0.00-0.68); EOSINOPHILS PERCENT AUTO 1 % (0-6); Hematocrit 32.9 % (33.0-51.0); Hemoglobin 10.3 g/dL (11.5-16.0); IMMATURE GRAN ABSOLUTE AUTO 0.02 K/mm3 (0.00-0.10); IMMATURE GRAN PERCENT AUTO 0 % (0-1); LYMPHOCYTES ABSOLUTE AUTO 0.86 K/mm3 (0.84-5.20); LYMPHOCYTES PERCENT AUTO 11 % (21-46); MONOCYTES ABSOLUTE AUTO 0.18 K/mm3 (0.16-1.47); MONOCYTES PERCENT AUTO 2 % (4-13); Mean Corpuscular HGB 24.3 pg (26.0-34.0); Mean Corpuscular HGB Conc 31.3 g/dL (31.5-36.5); Mean Corpuscular Volume 78 fL (80-100); Mean Platelet Volume 11.2 fL (9.1-12.4); NEUTROPHILS ABSOLUTE AUTO 6.95 K/mm3 (1.96-9.15); NEUTROPHILS PERCENT AUTO 86 % (41-73); Platelet Count 256 K/mm3 (150-400); RDW Coefficient Variation 16.1 % (11.7-14.2); RDW Standard Deviation 46.1 fL (35.1-46.3); Red Blood Cell Count 4.23 M/mm3 (3.80-5.20); White Blood Cell Count 8.08 K/mm3 (4.00-11.30)
[2024-05-06] MEDS ORDERED: CefTRIAXone Sodium 1,000 MG in NS 100 ML IV ONE (02:50)
[2024-05-06] MEDS ORDERED: Azithromycin 500 MG in NS 250 ML IV ONE (02:55)
[2024-05-06 03:11] LABS: Albumin, Blood 3.5 g/dL (3.4-5.0); Bilirubin, Total 0.3 mg/dL (0.1-1.0); Bun/Creatinine Ratio 22.4 (12.0-20.0); Calcium, Blood 8.7 mg/dL (8.5-10.1); Creatinine, Blood 0.54 mg/dL (0.40-1.00); Globulin, Blood 3.5 g/dL (2.2-4.0); Potassium, Blood 4.2 mmol/L (3.5-5.5)
[2024-05-06 03:27] LABS: Influenza A, PCR NEGATIVE (NEGATIVE); Influenza B, PCR NEGATIVE (NEGATIVE); Resp Syncytial Virus, PCR NEGATIVE (NEGATIVE); SARS-Cov-2 (COVID-19) PCR, MMC NEGATIVE (NEGATIVE)
[2024-05-06] MEDS ORDERED: Acetaminophen 325 MG TABLET PO PRN (03:40)
[2024-05-06] MEDS ORDERED: Nitroglycerin 0.4 MG SUBL SL PRN (03:55)
[2024-05-06 04:34] VITALS: BP 130/71
[2024-05-06 05:29] LABS: Percent Saturation 8.5 % (15.0-50.0)
--- NOTE | 2024-05-06 05:47 | NUR ---
SHIFT SUMMARY 53 YR F ADMITTED THIS SHIFT FROM THE ED FOR HERMINIO LOWER LUNG PNA. PT IS CURRENTLY ON 3L O2 AND CONTINUOUS PULSE OX. PT STATES SHE TAKES DAILY DIURETICS FOR BLE. HX OF AFIB. PT IS RESTING COMFORTABLY AT THIS TIME.
[2024-05-06] MEDS ORDERED: Omeprazole 20 MG CapCR PO SCH (06:00)
[2024-05-06 07:30] VITALS: BP 130/67
[2024-05-06] MEDS ORDERED: Apixaban 5 MG Tab PO SCH (09:00)
[2024-05-06] MEDS ORDERED: Sotalol HCl 80 MG Tab PO SCH ×2 (09:00→21:00)
[2024-05-06] MEDS ORDERED: Lactobacil 2-S.Thermo-Bifido 1 1 Cap PO SCH (09:00)
[2024-05-06] MEDS ORDERED: Potassium Chloride 20 MEQ TabCR PO SCH (09:00)
[2024-05-06] MEDS ORDERED: BusPIRone HCl 10 MG Tab PO SCH (09:00)
[2024-05-06] MEDS ORDERED: Aspirin 81 MG Chew PO SCH (09:00)
[2024-05-06] MEDS ORDERED: Famotidine 20 MG Tab PO SCH (09:00)
[2024-05-06] MEDS ORDERED: Furosemide 10 MG/ML 4ML Vial IV SCH (09:00)
[2024-05-06] MEDS ORDERED: Metoprolol Succinate 25 MG TABCR PO SCH (09:20)
[2024-05-06] MEDS ORDERED: CELE200 PO (09:57)
[2024-05-06] MEDS ORDERED: PREG150 PO (10:00)
[2024-05-06] MEDS ORDERED: MELO7.5 PO (10:00)
[2024-05-06] MEDS ORDERED: CALCIUM 600 +1 EA11 PO (10:05)
[2024-05-06] MEDS ORDERED: MAGNESIUM OXID500 MG PO (10:05)
--- NOTE | 2024-05-06 12:25 | NUR ---
ECHO RESULTS- DR COONEY CALLED THIS RN AT 1220 INFORMING THAT ECHO SHOWING MASS IN L ATRIA, ASKED FOR RN TO FORWARD INFORMATION TO DR BAUM, RN CALLED DR BAUM WHO WAS MADE AWARE OF THESE RESULTS 1225.
--- NOTE | 2024-05-06 15:34 | NUR ---
SUMMARY- PT A/O X4, INDEPENDANT IN ROOM, STEADY ON FEET. PT WENT FROM 3L O2 DOWN TO 2L/NC, SATTING MID 90'S, CONT PULSE OX. PT TOLERATING FOOD AND FLUIDS. VSS, AFIBRILE THIS SHIFT. RESP EVEN UNLABORED, NO CRACKLES IN BASES, SLIGHT DIM IN BASES. TELE SR. ECHO TODAY SHOWED MASS IN L ATRIA. DR RHODES CONSULTED. PLAN FOR URBANO TOMORROW AM 0700 05/07, NPO AFTER MN. PT HAS +2 BLE EDEMA AND GIVEN IV LASIX THIS AM. MONITORING I/O'S. PLAN FOR CHEST X-RAY AM FOR IMPROVEMENT AFTER DIURESING VS PNEUMONIA. WILL REPORT TO NOC RN
[2024-05-06] MEDS ORDERED: Sod Ferric Gluc Complx/Sucrose 125 MG in NS 100 ML IV SCH (16:00)
[2024-05-06 16:15] VITALS: BP 112/59
[2024-05-06 19:17] VITALS: BP 109/55
[2024-05-06] MEDS ORDERED: Calcium/Vit D 600 mg-400 Unit Tab PO SCH (21:00)
[2024-05-06] MEDS ORDERED: Pregabalin 75 MG Cap PO SCH (21:00)
[2024-05-07] VITALS (14 sets, daily range): BP systolic 94–147; BP diastolic 60–95
[2024-05-07 05:01] LABS: BASOPHILS ABSOLUTE AUTO 0.03 K/mm3 (0.00-0.23); BASOPHILS PERCENT AUTO 0 % (0-2); EOSINOPHILS ABSOLUTE AUTO 0.12 K/mm3 (0.00-0.68); EOSINOPHILS PERCENT AUTO 1 % (0-6); Hematocrit 28.5 % (33.0-51.0); Hemoglobin 9.1 g/dL (11.5-16.0); IMMATURE GRAN ABSOLUTE AUTO 0.04 K/mm3 (0.00-0.10); IMMATURE GRAN PERCENT AUTO 0 % (0-1); LYMPHOCYTES ABSOLUTE AUTO 0.99 K/mm3 (0.84-5.20); LYMPHOCYTES PERCENT AUTO 8 % (21-46); MONOCYTES ABSOLUTE AUTO 0.71 K/mm3 (0.16-1.47); MONOCYTES PERCENT AUTO 6 % (4-13); Mean Corpuscular HGB 24.5 pg (26.0-34.0); Mean Corpuscular HGB Conc 31.9 g/dL (31.5-36.5); Mean Corpuscular Volume 77 fL (80-100); Mean Platelet Volume 11.5 fL (9.1-12.4); NEUTROPHILS ABSOLUTE AUTO 10.57 K/mm3 (1.96-9.15); NEUTROPHILS PERCENT AUTO 85 % (41-73); Platelet Count 205 K/mm3 (150-400); RDW Coefficient Variation 15.9 % (11.7-14.2); RDW Standard Deviation 44.2 fL (35.1-46.3); Red Blood Cell Count 3.72 M/mm3 (3.80-5.20); White Blood Cell Count 12.46 K/mm3 (4.00-11.30)
--- NOTE | 2024-05-07 05:22 | NUR ---
SUMMARY: PT A/OX4, IS INDEPENDENT IN ROOM AND CALLS APPROPRIATELY TO SPECIFY NEEDS. SHE REMAINS ON 2L O2 VIA NC W/SPO2 WNL ON CONT BIOX. NO S/S RESP DISTRESS AND UNABLE TO COLLECT SPUTUM SPECIMEN D/T DRY AUTOMOBILE DAMAGE FIELD APPRAISER COUGH. REPEAT CXR SCHEDULED THIS AM TO CHECK FOR IMPROVEMENT FROM DIURESIS VS PNM. SHE'S ALSO BEEN NPO SINCE MN FOR URBANO PLANNED TODAY AT 0700 AND PT SHOWERED THIS MORNING IN PREPARATION FOR IT. 1-2+ EDEMA PERSISTS TO BLE'S. SHE'S NSR ON TELE AT 70'S BPM. NO ACUTE CHANGES, VSS/AFEBRILE. WCTM AND REPORT TO DAY RN.
--- NOTE | 2024-05-07 05:46 | NUR ---
ASSUMED CARE OF PT WHILE PRIMARY RN ON BREAK. CALL LIGHT WITHIN REACH.
[2024-05-07] MEDS ORDERED: Ondansetron HCl 2 MG / ML 2ML Vial ONE (07:08)
[2024-05-07] MEDS ORDERED: propofoL 20 ML IV ONE ×2 (07:08)
[2024-05-07] MEDS ORDERED: Lidocaine HCl 2% 20 ML MDV ONE (07:08)
[2024-05-07] MEDS ORDERED: Benzocaine Oral Spray 0.5ML UD ONE (07:09)
[2024-05-07] MEDS ORDERED: NS 1,000 ML IV ONE (07:13)
--- NOTE | 2024-05-07 07:42 | NUR ---
ASSUMED CARE FROM ANESTHESIA. PT AWAKE AND VERBALIZING WELL.
--- NOTE | 2024-05-07 07:50 | NUR ---
PT AMB IN RM /S DIFFICULTY.
[2024-05-07] MEDS ORDERED: CefTRIAXone Sodium 1,000 MG in NS 100 ML IV SCH (08:00)
--- NOTE | 2024-05-07 08:00 | NUR ---
PT TRANSFERED BACK TO RM 308 VIA W/C. FULL REPORT GIVEN TO SONNY POLK RN.
[2024-05-07] MEDS ORDERED: Azithromycin 500 MG in NS 250 ML IV SCH (09:00)
[2024-05-07] MEDS ORDERED: Metoprolol Succinate 25 MG TABCR PO SCH (09:00)
[2024-05-07] MEDS ORDERED: Magnesium Oxide 400 MG Tab PO SCH (09:00)
[2024-05-07] MEDS ORDERED: Meloxicam 7.5 MG Tab PO SCH (09:00)
[2024-05-07] MEDS ORDERED: NS 250 ML IV PRN (09:35)
[2024-05-07] MEDS ORDERED: Saline Nasal Spray 45 ML PRN (10:20)
[2024-05-07] MEDS ORDERED: FURO80 PO (11:10)
[2024-05-07] MEDS ORDERED: FURO40 PO (11:11)
--- NOTE | 2024-05-07 13:21 | NUR ---
Upon receiving a referral for spiritual care, I visited the patient. She immediately tells me about her medical problems and then shares about her many other stressors. She explins about her financial lack, her car being impounded and her sruggles with anxiety and depression. She also shares about her spiritual beliefs and her resistance to formal, conservative organized jewish. I normalized her experience, provided therapeutic listening, prayer and theological insights. She responded well and showed signs of reduced stress. I will continue to remain available to patient and family.
[2024-05-07 13:54] LABS: Acinetobacter baumannii DNA Not Detected copy/mL (NOT DETECT); Adenovirus DNA Not Detected (NOT DETECT); Chlamydia pneumonia Not Detected (NOT DETECT); Enterobacter cloacae DNA Not Detected copy/mL (NOT DETECT); Escherichia coli DNA Not Detected copy/mL (NOT DETECT); Haemophilus influenzae DNA Not Detected copy/mL (NOT DETECT); Human Coronavirus RNA Not Detected (NOT DETECT); Human Metapneumovirus RNA Not Detected (NOT DETECT); Influenza virus A RNA Not Detected (NOT DETECT); Influenza virus B RNA Not Detected (NOT DETECT); Klebsiella aerogenes DNA Not Detected copy/mL (NOT DETECT); Klebsiella oxytoca DNA Not Detected copy/mL (NOT DETECT); Klebsiella pneumoniae DNA Not Detected copy/mL (NOT DETECT); Legionella pneumophila Not Detected (NOT DETECT); Moraxella catarrhalis DNA Not Detected copy/mL (NOT DETECT); Mycoplasma pneumoniae Not Detected (NOT DETECT); Parainfluenza virus RNA Not Detected (NOT DETECT); Proteus sp DNA Not Detected copy/mL (NOT DETECT); Pseudomonas aeruginosa DNA Not Detected copy/mL (NOT DETECT); Respiratory syncytial Vir RNA Not Detected (NOT DETECT); Rhinovirus+Enterovirus RNA Not Detected (NOT DETECT); Serratia marcescens DNA Not Detected copy/mL (NOT DETECT); Staphylococcus aureus DNA Not Detected copy/mL (NOT DETECT); Streptococcus agalactiae DNA Not Detected copy/mL (NOT DETECT); Streptococcus pneumoniae DNA Not Detected copy/mL (NOT DETECT); Streptococcus pyogenes DNA Not Detected copy/mL (NOT DETECT)
--- NOTE | 2024-05-07 16:19 | NUR ---
SUMMARY PT IS ALERT AND ORIENTED X4, ABLE TO MAKE NEEDS KNOWN. INDEPENDENT BUT WILL CALL IF SHE NEEDS HELP WITH LINES, TUBES. 2L NC ON CONTINUOUS BIOX, NON PRODUCTIVE DRY COUGH, LLE > RLE, ULTRASOUND COMPLETED TODAY. PT DENIES CHEST PAIN, SOB, AND GENERALIZED PAIN. IV ANTIBIOTICS CONTINUED. BE IS IN THE LOWEST POSITION WITH CALL LIGHT IN REACH.
[2024-05-07] MEDS ORDERED: Furosemide 10 MG/ML 4ML Vial IV SCH (18:00)
[2024-05-08 03:39] VITALS: BP 135/76
[2024-05-08 04:58] LABS: BASOPHILS ABSOLUTE AUTO 0.03 K/mm3 (0.00-0.23); BASOPHILS PERCENT AUTO 0 % (0-2); EOSINOPHILS ABSOLUTE AUTO 0.24 K/mm3 (0.00-0.68); EOSINOPHILS PERCENT AUTO 3 % (0-6); Hematocrit 28.9 % (33.0-51.0); IMMATURE GRAN ABSOLUTE AUTO 0.03 K/mm3 (0.00-0.10); IMMATURE GRAN PERCENT AUTO 0 % (0-1); LYMPHOCYTES ABSOLUTE AUTO 0.87 K/mm3 (0.84-5.20); LYMPHOCYTES PERCENT AUTO 11 % (21-46); MONOCYTES ABSOLUTE AUTO 0.61 K/mm3 (0.16-1.47); MONOCYTES PERCENT AUTO 8 % (4-13); Mean Corpuscular HGB 24.2 pg (26.0-34.0); Mean Corpuscular HGB Conc 31.1 g/dL (31.5-36.5); Mean Corpuscular Volume 78 fL (80-100); Mean Platelet Volume 11.6 fL (9.1-12.4); NEUTROPHILS ABSOLUTE AUTO 5.82 K/mm3 (1.96-9.15); NEUTROPHILS PERCENT AUTO 77 % (41-73); Platelet Count 212 K/mm3 (150-400); RDW Standard Deviation 45.7 fL (35.1-46.3); Red Blood Cell Count 3.72 M/mm3 (3.80-5.20)
[2024-05-08 05:22] LABS: Bun/Creatinine Ratio 18.3 (12.0-20.0); Calcium, Blood 8.7 mg/dL (8.5-10.1); Creatinine, Blood 0.49 mg/dL (0.40-1.00); Potassium, Blood 3.4 mmol/L (3.5-5.5)
--- NOTE | 2024-05-08 06:02 | NUR ---
SUMMARY: PT A/OX4, IS INDEPENDENT IN ROOM AND CALLS APPROPRIATELY TO SPECIFY NEEDS. SHE REMAINS ON 2L O2 VIA NC W/SPO2 WNL AND HAS BEEN ASYMPTOMATIC OF RESP DISTRESS T/O NOCTE.1800ML FREE WATER FLUID RESTRICT MAINTAINED AND PT DIURESING WELL W/INCREASED LASIX DOSE. BLE EDEMA PERSISTS BUT IS IMPROVING, LLE>RLE. NEW IV WAS PLACED TO L.FA VIA U/S AND ABX WERE RECEIVED PER EMAR. SHE REMAINS NSR ON TELE AT 60'S BPM W/NO ACUTE CHANGES AND VSS/AFEBRILE. WCTM AND REPORT TO DAY RN.
[2024-05-08 07:09] VITALS: BP 133/73
[2024-05-08] MEDS ORDERED: Potassium Chloride 40 MEQ in NS 250 ML IV STA (08:03)
[2024-05-08] MEDS ORDERED: Lidocaine 4% 1 Patch TOP PRN (10:30)
[2024-05-08 15:14] VITALS: BP 123/81
--- NOTE | 2024-05-08 16:55 | NUR ---
PT AOX4 AND COOPERATIVE OF CARE DOING WELL ON ROOM AIR.PT STARTED SHIFT CALM AND QUIET THEN THIS CLIENT TECHNICAL SPECIALIST FOUND PT CRYING. PT HAD JUST FOUND OUT HER MOTHER HAD PASSED. PT WAS ABLE TO STTLE DOWN AND WAS ABLE TO TALK ABOUT THE SUDDEN NEWS. PT IS NOW DOING BETTER MAKING CALLS TO FAMILY AND FRIENDS. PT INDEPENDENT IN ROOM NO DISTRESS CURRENTLY NOTED. CALL LIGHT WITHIN REACH WILL CONTINUE TO MONITOR.
--- NOTE | 2024-05-08 20:43 | NUR ---
THIS RN PROVIDING BREAK COVERAGE FOR PRIMARY RN.
[2024-05-08 20:57] VITALS: BP 115/59
--- NOTE | 2024-05-09 03:58 | NUR ---
DISTRIBUTION SUPERVISOR SUMMARY VSS. LUNG SONDS DIMINISHED. OCCASIONAL COUGH. ROOM AIR. UP AD CALVIN WIHOUT NOTED DISTRESS. ALERT AND ORIENTED. ALTHOUGH EDEMA NOTED OF BLE, VOICED THAT ITS IMPROVING. (ON LASIX). HAS BEEN RESTING QUIETLY WITH FEW INTERRUPTIONS. ABLE O REPOSITION SELF IN BED WITHOU ASSIST. CALL LIGHT IN REACH, RAILS UP X 2 AND BED IN LOW POSITION FOR SAFETY. WILL CONT TO MONITOR
[2024-05-09 04:54] VITALS: BP 116/79
[2024-05-09 07:12] VITALS: BP 118/57
--- NOTE | 2024-05-09 11:41 | NUR ---
Patient immediately tells me about the very recent of her mother. She talks about how much she will miss her voice on the phone as they talked several times a week. She shares about the strained family dynamics and we explore the complications of pt's grief. Pt explains about all the details she and her brother are trying to pull together with her mother's finances, arrangements and phone calls to all who will be impacted by her . I provide therapeutic listening, grief support and prayer. Patient responded well and showed signs of being comforted.
[2024-05-09] MEDS ORDERED: TORSE20 PO (12:42)
[2024-05-09] MEDS ORDERED: DOXY100 PO (12:43)
[2024-05-09] MEDS ORDERED: VISBIOME 112.51 EACH PO (12:44)
[2024-05-09] MEDS ORDERED: LIDO700A20 TOP (12:44)
[2024-05-09] MEDS ORDERED: POTA10T PO (12:44)
--- NOTE | 2024-05-09 13:03 | NUR ---
SHIFT SUMMARY AND DISCHARGE PATIENT ALERT AND INTERACTIVE. PATIENT VERY TALKATIVE AND EMOTIONAL. PATIENT FOUND OUT MOTHER HAD PASSED DURING THIS HOSPITALIZATION. PATIENT BEING DISCHARGED. DISCHARGE INSTRUCTIONS REVIEWED WITH PATIENT. IV DC'D. PATIENT TAKEN OUT VIA WHEELCHAIR BY BEDSPREAD CUTTER. BELONGINGS SENT WITH PATIENT..
== END 2024-05-09 13:25 | disposition home or self-care (01) | DRG 189 ==
LOC: ER 02:35 → MEDS 03:36
PROVIDERS: Emergency Medicine; Family Medicine; Hospitalist; ADMIT Student in an Organized Health Care Education/Training Program
DX: J96.01 Acute respiratory failure with hypoxia (principal); Z68.42 Body mass index [BMI] 45.0-49.9, adult; E66.2 Morbid (severe) obesity with alveolar hypoventilation; I50.32 Chronic diastolic (congestive) heart failure; D50.9 Iron deficiency anemia, unspecified; Z98.84 Bariatric surgery status; E78.5 Hyperlipidemia, unspecified; F32.A Depression, unspecified; G62.9 Polyneuropathy, unspecified; Z99.81 Dependence on supplemental oxygen; Z79.01 Long term (current) use of anticoagulants; Z79.899 Other long term (current) drug therapy; I48.0 Paroxysmal atrial fibrillation; I11.0 Hypertensive heart disease with heart failure; F10.10 Alcohol abuse, uncomplicated; Z98.51 Tubal ligation status; Z96.651 Presence of right artificial knee joint; Z87.891 Personal history of nicotine dependence
CPT/HCPCS: 0241U; 36415; 71045; 80048; 80053; 82728; 83540; 83550; 83605; 83880; 84145; 84484; 85025; 87040; 87633; 93005; 93010; 93306; 93312; 93325; 93971; 94664; 94760; 94762; 96365-59; 96375-59; 99285-25; A9270; J0456; J0696; J1940; J2405; J2704; J2916; J3480; J7030; J7050